=== PATIENT | male | born 1965 | race Caucasian/White ===

== ENCOUNTER → 2020-07-22 11:09 | Outpatient (BNVA) | payer SELFPAY | PROVIDERS: PCP Internal Medicine; Visit Provider Internal Medicine | DX: Z02.79 Encounter for issue of other medical certificate (principal) ==

== ENCOUNTER 2022-06-02 07:57 | Outpatient (REF) | payer BC, SELFPAY ==
[2022-06-02 11:29] LABS: MANUAL DIFF FLAG NO
[2022-06-02 11:38] LABS: Basophils Absolute Auto 0.1 X10*3/uL (0.0-0.2); Basophils Percent Auto 0.8 % (0-2); Eosinophils Absolute Auto 0.1 X10*3/uL (0.0-0.4); Eosinophils Percent Auto 1.9 % (0-4); Hematocrit 43.8 % (42.0-52.0); Hemoglobin 15.1 g/dl (14.0-18.0); Imm Gran Abs Auto 0.02 X10*3/uL (0.00-0.03); Imm Gran Pct Auto 0.3 % (0.0-0.4); Lymphocytes Absolute Auto 1.6 X10*3/uL (1.2-4.9); Lymphocytes Percent Auto 25.4 % (20-40); Mean Corpuscular HGB Conc 34.5 g/dl (31.0-36.0); Mean Corpuscular Hemoglobin 30.1 pg (27.0-33.0); Mean Corpuscular Volume 87.4 fL (80.0-98.0); Mean Platelet Volume 9.9 fL (9.4-12.4); Monocytes Absolute Auto 0.6 X10*3/uL (0.1-1.2); Neutrophils Absolute Auto 3.8 x10*3/uL (2.0-8.3); Neutrophils Percent Auto 61.6 % (45-73); Platelet Count 228 X10*3/uL (160-400); Red Blood Count 5.01 X10*6/uL (4.60-5.80); White Blood Count 6.2 X10*3/uL (4.8-10.8)
[2022-06-02 12:17] LABS: Alanine Aminotransferase 31 U/L (0-40); Albumin Level 4.2 g/dL (3.5-5.0); Alkaline Phosphatase 74 U/L (39-117); Anion Gap 15 (12-20); Aspartate Amino Transferase 27 U/L (5-37); Bilirubin Total 0.9 mg/dL (0.0-1.0); Blood Urea Nitrogen 20 mg/dL (9-16); Calcium 8.8 mg/dL (8.4-10.2); Carbon Dioxide 24 mmol/L (22-29); Chloride 102 mmol/L (96-108); Cholesterol 176 mg/dL; Estimated Glomerular Filt Rate > 60; Glucose Fasting 110 mg/dL (60-99); HDL Cholesterol 55 mg/dL; LDL Cholesterol Calculated 96 mg/dl; Potassium 4.3 mmol/L (3.3-5.1); Sodium 137 mmol/L (135-145); Total Protein 6.9 g/dL (6.5-8.0); Triglycerides 126 mg/dL
[2022-06-02 12:21] LABS: PSA,Total (Free>4and<10) 0.66 ng/mL (0.00-4.00); Thyroid Stimulating Hormone 1.65 uIU/mL (0.32-4.0); Vitamin D 25-OH Total 31.3 ng/mL (>30)
[2022-06-02 16:44] LABS: Appearance Urine Cloudy; Color Urine Yellow; Glucose Urine UA Negative (Negative); Leukocyte Esterase Urine Negative (Negative); Nitrite Urine Negative (Negative); Urine Blood Negative (Negative); Urine Ketones Negative (Negative); Urine Protein Trace mg/dL (Neg-Trace)
[2022-06-02 16:50] LABS: Bacteria Urine None Seen (None Seen); Hyaline Casts Urine 0-2 /LPF (0-2); RBC Urine 0-2 /HPF (0-2); Squamous Epithelial Cell Urine 0-2 /HPF (0-2); WBC Urine 0-5 /HPF (0-5)
[2022-06-02 17:09] LABS: Specific Gravity - Urine >= 1.030 (1.005-1.025)
== END 2022-06-02 07:58 | disposition home or self-care (01) ==
LOC: HO.HMGCLDS 07:57
PROVIDERS: PCP Internal Medicine; Visit Provider Internal Medicine
DX: Z00.00 Encounter for general adult medical examination without abnormal findings (principal); Z12.5 Encounter for screening for malignant neoplasm of prostate; F10.10 Alcohol abuse, uncomplicated
CPT/HCPCS: 36415; 80053; 80061; 81001; 82306; 84153; 84443; 85025

== ENCOUNTER → 2022-07-13 08:12 | Outpatient (BNVA) | payer SELFPAY | PROVIDERS: PCP Internal Medicine; Visit Provider Internal Medicine | DX: Z02.79 Encounter for issue of other medical certificate (principal) ==

== ENCOUNTER 2023-04-06 08:29 | Outpatient (REF) | payer BC, SELFPAY ==
--- NOTE | ~2023-04-06 | XR_ITS ---
EXAMINATION: XR SACROILIAC JOINTS CLINICAL INFORMATION: Low back pain COMPARISON: None available at the time of this dictation. TECHNIQUE: Three views, frontal and both obliques, were obtained. FINDINGS: Mild sclerotic changes around the sacroiliac joints are Third right more than left suggesting mild sacroiliitis. No evidence of ankylosing. The sacrum, iliac bone, visualized portion of the lumbar spine are intact. Surrounding soft tissues unremarkable. XR/XR sacroiliac joint min 3V IMPRESSION: * Mild sclerotic changes around the sacroiliac joints right more than left suggesting mild sacroiliitis. May consider correlation with MRI for better visualization if clinically indicated. * No evidence of ankylosing spondylitis.
--- NOTE | ~2023-04-06 | XR_ITS ---
EXAMINATION: XR LUMBAR SPINE CLINICAL INFORMATION: BILAT LOW BACK PAIN COMPARISON: None TECHNIQUE: Frontal lateral and coned-down L5-S1 frontal lateral, 3 views FINDINGS: Five [id number] lumbar vertebrae were identified maintaining normal height and alignments. Narrowing of intervertebral disc spaces suggest underlying degenerative disc disease. Paravertebral soft tissues are unremarkable. There are vascular calcifications of the aorta. There are radiolucencies, most likely superimposed bowel gas.. No radiographic evidence of osteolytic or osteoblastic lesions. XR/XR lumbar spine 2-3V IMPRESSION: Degenerative disc disease, no fracture.
== END 2023-04-06 08:30 | disposition home or self-care (01) ==
LOC: HO.HMGCX 08:29
PROVIDERS: PCP Internal Medicine; Visit Provider Internal Medicine
DX: M54.50 Low back pain, unspecified (principal)
CPT/HCPCS: 72100; 72202

== ENCOUNTER 2023-09-11 08:29 | Outpatient (REF) | payer BC, SELFPAY ==
[2023-09-11 10:29] LABS: MANUAL DIFF FLAG NO
[2023-09-11 10:48] LABS: Basophils Absolute Auto 0.1 X10*3/uL (0.0-0.2); Basophils Percent Auto 1.3 % (0-2); Eosinophils Absolute Auto 0.1 X10*3/uL (0.0-0.4); Eosinophils Percent Auto 1.5 % (0-4); Hematocrit 40.6 % (42.0-52.0); Hemoglobin 14.2 g/dl (14.0-18.0); Imm Gran Abs Auto 0.02 X10*3/uL (0.00-0.03); Imm Gran Pct Auto 0.4 % (0.0-0.4); Lymphocytes Absolute Auto 1.3 X10*3/uL (1.2-4.9); Lymphocytes Percent Auto 24.3 % (20-40); Mean Corpuscular Volume 88.6 fL (80.0-98.0); Mean Platelet Volume 10.4 fL (9.4-12.4); Monocytes Absolute Auto 0.5 X10*3/uL (0.1-1.2); Monocytes Percent Auto 8.2 % (2-11); Neutrophils Absolute Auto 3.5 x10*3/uL (2.0-8.3); Neutrophils Percent Auto 64.3 % (45-73); Platelet Count 221 X10*3/uL (160-400); Red Blood Count 4.58 X10*6/uL (4.60-5.80); Red Cell Distribution Width 13.1 % (11.0-16.0); White Blood Count 5.5 X10*3/uL (4.8-10.8)
[2023-09-11 12:17] LABS: Alanine Aminotransferase 30 U/L (0-40); Albumin Level 3.9 g/dL (3.5-5.0); Alkaline Phosphatase 71 U/L (39-117); Anion Gap 12 (12-20); Aspartate Amino Transferase 32 U/L (5-37); Bilirubin Total 0.5 mg/dL (0.0-1.0); Blood Urea Nitrogen 19 mg/dL (9-16); Carbon Dioxide 23 mmol/L (22-29); Chloride 104 mmol/L (96-108); Cholesterol 147 mg/dL (<200); Estimated Glomerular Filt Rate > 60; Glucose Fasting 111 mg/dL (60-99); HDL Cholesterol 51 mg/dL (>40); LDL Cholesterol Calculated 73 mg/dL (<100); Potassium 3.9 mmol/L (3.3-5.1); Sodium 135 mmol/L (135-145); Total Protein 6.7 g/dL (6.5-8.0); Triglycerides 115 mg/dL (<150)
== END 2023-09-11 08:30 | disposition home or self-care (01) ==
LOC: HO.HMGCLDS 08:29
PROVIDERS: PCP Internal Medicine; Visit Provider Internal Medicine
DX: Z00.00 Encounter for general adult medical examination without abnormal findings (principal); Z12.5 Encounter for screening for malignant neoplasm of prostate; M54.50 Low back pain, unspecified; F17.200 Nicotine dependence, unspecified, uncomplicated
CPT/HCPCS: 36415; 80053; 80061; 84153; 85025

== ENCOUNTER 2023-10-04 14:17 | Outpatient (AMB) | payer BC, SELFPAY ==
--- NOTE | 2023-10-04 14:18 | MHC.OFFVIS ---
Intake Vital Signs 10/04/23 14:26 Height 5 ft 5.5 in Weight 152 lb BMI 24.9 BP 153/84 H Blood Pressure Location Rt brachial Position Sitting Pulse 78 Intake Visit Reasons: Hernia of abdominal wall Intake Note: Patient referred by PCP Dr. Gallardo for evaluation and treatment of an abdominal wall hernia. Patient thinks hernia has been present since . Pt c/o: became bothersome recently. 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 Allergy (Unknown, Uncoded 10/04/23 14:24) n/a Medication List - Last Reconciled 10/04/23 by Aidan Hess MD No Known Home Meds HPI HPI Comments History of Present Illness Details 58-year-old male patient presenting with a prolonged history of a lump located in the right groin. He feels the lump began many years ago perhaps in the 80s after lifting over his head. Since this time, the lump as started to cause some discomfort. He was evaluated by Dr. Gallardo and a right inguinal hernia confirmed. He denies any nausea, vomiting, fever or chills. He he is status post appendectomy but denies any previous hernia surgery. The hernia seems to increase in size with lifting and straining but is easily reducible with light pressure. [facility] Medical History Depressed skull fracture Surgical History History of appendectomy History of arthroplasty of right knee Family History Sister Pelvic cancer Social History Alcohol intake: current Alcohol intake frequency: a few times a week Alcohol type: beer Cigarettes Per Day: 2 Review of Systems Const All systems reviewed & are unremarkable except as noted in HPI and below Physical Exam Vital Signs: Last Vital Signs Pulse 78 10/04/23 14:26 BP 153/84 H 10/04/23 14:26 BMI result Body Mass Index 24.9 Const General: cooperative and no acute distress Nutritional Appearance: well nourished Orientation/consciousness: patient oriented x3 Limitations: no limitations HEENT Head: Yes normocephalic and Yes atraumatic Ears: hearing grossly normal bilaterally Resp Effort & Inspection: normal respiratory effort, no audible wheezes, no cough and no respiratory distress Cardio Jugular venous distension: no JVD GI Other: Soft, nondistended, nontender, easily reducible lump in the right groin slightly lateral to the internal ring. Lump increases in size with Valsalva maneuvers and is easily reduced in the standing position. No left inguinal hernia or umbilical hernias are identified. Inspection: Yes normal to inspection Abdomen image: 1. 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 The lump is now become symptomatic and is requesting repair. On examination there is indeed a palpable lump in the right groin suggestive of a right inguinal hernia. The hernia is easily reducible with light pressure. I recommended a repair of the right inguinal hernia with mesh and after discussion of the procedure, risks, and alternatives, consents to the surgery. Coding Level of Care Code New Pt Level 4 (22686) Diagnoses Reducible right inguinal hernia K40.90
[2023-10-04 14:26] VITALS: BP 153/84; PULSE 78; BMI 24.9
== END 2023-10-04 14:38 | disposition home or self-care (01) ==
PROVIDERS: PCP Internal Medicine; Referring Provider Internal Medicine; Visit Provider Surgery
DX: K40.90 Unilateral inguinal hernia, without obstruction or gangrene, not specified as recurrent (principal)
CPT/HCPCS: 99204

== ENCOUNTER → 2023-10-04 14:17 | Outpatient (BNVA) | payer BC, SELFPAY | PROVIDERS: PCP Internal Medicine; Referring Provider Internal Medicine; Visit Provider Surgery ==

== ENCOUNTER 2023-10-15 08:50 | Day surgery (SDC) | payer BC, SELFPAY ==
--- NOTE | 2023-10-12 09:10 | HO.ANESPROP2 ---
Documented by User: Elise Landry NP 10/12/23 09:10 HPI - Anesthesia Eval Consult details Narrative: 58yo M for Right Hernia Repair Inguinal w/mesh PMFSH Active Problems Active Problems: All Active Problems (Updated 10/04/23 @ 14:39 by Aidan Hess MD) Reducible right inguinal hernia (Acute) Past Medical History Medical History Depressed skull fracture Family History Family History Sister Pelvic cancer Surgical History Surgical History History of appendectomy History of arthroplasty of right knee Social History Social History Alcohol intake: current Alcohol intake frequency: a few times a week Alcohol type: beer Patient Tobacco Use Status: Current everyday Tobacco user Tobacco use type: Cigarette Cigarettes Per Day: 2 Smoked in Last 30 Days: Yes Patient Interested in Nicotine Replacement: No Are you DNR?: No Advance Directives: No Advance Directives Information Provided: Yes Nutrition Risks: No Nutritional Risk Meds Allergies Allergy/AdvReac Type Severity Reaction Status Date / Time No Known Allergies Allergy Verified 10/15/23 09:18 Home Medications Medication Instructions Recorded Confirmed Last Taken Type No Known Home Meds 10/04/23 10/15/23 Unknown History Exam Pertinent Lab Results Pertinent Lab Results: Laboratory Tests 09/11/23 09/11/23 08:04 08:36 WBC 5.5 Hgb 14.2 Hct 40.6 L Plt Count 221 Sodium 135 Potassium 3.9 Chloride 104 Carbon Dioxide 23 BUN 19 H Creatinine 0.91 Assessment and Plan Assessment Anesthesia Assessment: Chart Reviewed Documented by User: Ava Deras MD 10/15/23 10:13 PMFSH Active Problems Active Problems: All Active Problems (Updated 10/15/23 @ 10:00 by Ava Deras MD) Reducible right inguinal hernia (Acute) Smoker- last cigarette this morning Past Medical History Medical History Depressed skull fracture Family History Family History Sister Pelvic cancer Family history of problems with anesthesia: No Surgical History Surgical History History of appendectomy History of arthroplasty of right knee History of Problems with Anesthesia: No Social History Social History Alcohol intake: current Alcohol intake frequency: a few times a week Alcohol type: beer Patient Tobacco Use Status: Current everyday Tobacco user Tobacco use type: Cigarette Cigarettes Per Day: 2 Smoked in Last 30 Days: Yes Patient Interested in Nicotine Replacement: No Are you DNR?: No Advance Directives: No Advance Directives Information Provided: Yes Nutrition Risks: No Nutritional Risk Meds Allergies Allergy/AdvReac Type Severity Reaction Status Date / Time No Known Allergies Allergy Verified 10/15/23 09:18 Home Medications Medication Instructions Recorded Confirmed Last Taken Type No Known Home Meds 10/04/23 10/15/23 Unknown History Exam Height,Weight and Vital Signs: Height 5 ft 5.5 in Weight 70.125 kg Vital Signs Temp Pulse Resp BP Pulse Ox O2 Del Method 10/15/23 09:49 98.1 F 62 18 126/78 98 Room Air Airway Mallampati Class: II TM Dist: >3cm Neck ROM: Full Loose/Missing/Broken Teeth: Yes (Broken top front, some missing. Denies loose teeth) Heart: RRR Lungs: CTAB Assessment and Plan Assessment Anesthesia Assessment: Anesthesia Plan Discussed Final Anesthetic Review Family History of Problems with Anesthesia: No History of Problems with Anesthesia: No NPO: Yes ASA Class: II Final Preanesthetic Review: No Changes in Pt Med Stat, Meds/Allgs Chart Reviewed, Consent Obtained/Reviewed and Anes Risks/Benef Reviewed Patient Risk: Low Procedure Risk: Low Assessment/Block/Sedation in SS: Assess/Block/Sedation-SS Anesthetic Plan Anesthetic Plan: GA Disposition: Standard PACU
[2023-10-15 09:17] VITALS: BMI 25.3
[2023-10-15 09:49] VITALS: BP 126/78; PULSE 62; RESP 18; TEMP 36.7; O2SAT 98
--- NOTE | 2023-10-15 09:50 | MHC.SHP ---
Pre-Procedural Eval Section A Date of Service: 10/15/23 The patient is an INPATIENT: No Changes since office visit: Yes Patient answered all questions; No Cold of Flu in the past 2 weeks, No New Medical Problems and No Changes in Medication The History & Physical has been completed within 30 days and I have reviewed it.: Yes Section B Chief Complaint: Unilateral inguinal hernia, without obstruction or Allergies: Allergies Allergy/AdvReac Type Severity Reaction Status Date / Time No Known Allergies Allergy Verified 10/15/23 09:18 Plan Diagnosis/Plan: Unchanged I have reviewed the history and physical and performed a pertinent physical examination on my patient. No changes have occurred unless specified. Time Spent With Patient Time: Total time managing care of this patient today ____ minutes.
--- NOTE | 2023-10-15 11:07 | W.PM.OPN ---
Operative Note Operative Note Date of Service: 10/15/23 Narrative: Preoperative diagnosis: Right inguinal hernia, reducible Postoperative diagnosis: Same Procedure: Same Surgeon: Aidan Hess MD Tax Commissioner: Nighat Pritchard PA-C Anesthesia: General LMA Indications for procedure: 58-year-old male patient presenting with a palpable lump located in the right groin extending lateral of the internal ring consistent with an inguinal hernia, reducible Operative findings: Indirect right inguinal hernia, reducible Specimen: None Estimated blood loss: 2 mL Complications: None Procedure details: Patient was brought to the OR and placed in a supine position. After administering general anesthesia patient's abdomen was prepped with ChloraPrep and draped in a sterile fashion. A surgical time-out was called the consent confirmed. Patient received preoperative antibiotics and Venodyne boots were in place. Local anesthesia was infiltrated over the right inguinal ligament. Incision was then made with a scalpel carried out through subcutaneous tissue, past Rob's fashion up to the external oblique aponeurosis. Additional local was infiltrated below the aponeurosis. This was then incised with the scalpel widened with the Metzenbaum scissors. Spermatic cord was then dissected free from the surrounding inguinal canal and retracted with a Navya drain. No direct hernia was identified. Fibers of the cremasteric muscle were divided along the fibers and the cord explored. An indirect sac was identified dissected down to the internal ring. This was then reduced into the abdominal cavity. Attention was then directed to the floor of the inguinal canal. The internal oblique and transversalis aponeurosis was then incised history peritoneal space entered. This was then widened with an open Ray-Camille sponge. A large extended PHS mesh was then obtained. The circular underlay was then deployed within the preperitoneal space. The overlay was then secured to the pubic tubercle, conjoined tendon, and shelving edge of the inguinal ligament using 0 Polysorb suture. The mesh was slit at the internal ring and wrapped around the spermatic cord. This was then secured to the shelving edge of the inguinal ligament. Internal ring was high enough to allow the passage of the index finger tip. The remaining mesh was then placed laterally below the external oblique aponeurosis. Wounds were then irrigated with saline and suctioned dry. External oblique aponeurosis was then closed using a running 2-0 Polysorb suture. 5 mL of Zenrelef was then infiltrated below the external oblique aponeurosis. Rob's fascia and dermis were then reapproximated using interrupted 3-0 Polysorb sutures. Skin was then closed using a running subcuticular 4-0 Polysorb suture. Steri-Strips, 2 x 2 gauze and Tegaderm were then applied. The patient tolerated the procedure well. Sponge, instrument, and needle counts reported as correct. The patient was transferred to PACU in stable condition.
[2023-10-15 11:18] VITALS: BP 122/79; PULSE 67; RESP 10; TEMP 36.1; O2SAT 95
[2023-10-15 11:20] VITALS: BP 113/79; PULSE 64; RESP 12; O2SAT 98
[2023-10-15 11:25] VITALS: BP 112/77; PULSE 62; RESP 14; O2SAT 95
[2023-10-15 11:30] VITALS: BP 125/76; PULSE 62; RESP 16; O2SAT 98
[2023-10-15 11:45] VITALS: BP 141/85; PULSE 62; RESP 14; TEMP 36.6; O2SAT 98
== END 2023-10-15 12:53 | disposition home or self-care (01) ==
PROVIDERS: PCP Internal Medicine; Visit Provider Surgery
PROC: (CPT 49505; principal; 2023-10-15 10:20)
DX: K40.90 Unilateral inguinal hernia, without obstruction or gangrene, not specified as recurrent (principal); Z98.890 Other specified postprocedural states; F17.210 Nicotine dependence, cigarettes, uncomplicated
CPT/HCPCS: 49505; C1781; C9088; J0665; J0690; J1100; J1885; J2250; J2405; J2704; J3010

== ENCOUNTER → 2023-10-15 08:50 | Outpatient (BNV) | payer BC, SELFPAY | PROVIDERS: PCP Internal Medicine; Visit Provider Surgery | DX: K40.90 Unilateral inguinal hernia, without obstruction or gangrene, not specified as recurrent (principal) | CPT/HCPCS: 49505 ==

== ENCOUNTER 2023-10-23 10:20 | Outpatient (AMB) | payer BC, SELFPAY ==
--- NOTE | 2023-10-23 10:29 | MHC.OFFVIS ---
Intake Vital Signs 10/23/23 10:30 Height 5 ft 5.5 in Weight 152 lb 2 oz BMI 24.9 BP 155/83 H Blood Pressure Location Lt brachial Position Sitting Pulse 95 Intake Visit Reasons: S/p RIH repair with mesh Intake Note: Patient is seen in office for post op assessment post right inguinal hernia repair. 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 He tolerated the procedure well but does have some soreness in the incision. He feels Tylenol is helping with the pain. He denies any nausea or vomiting but did have some constipation. ON LICENSE OF [facility] Medical History Depressed skull fracture Surgical History H/O right inguinal hernia repair (10/15/23) History of appendectomy History of arthroplasty of right knee Family History Sister Pelvic cancer Social History Alcohol intake: current Alcohol intake frequency: a few times a week Alcohol type: beer Patient Tobacco Use Status: Current everyday Tobacco user Tobacco use type: Cigarette Cigarettes Per Day: 2 Physical Exam Vital Signs: Last Vital Signs Pulse 95 10/23/23 10:30 BP 155/83 H 10/23/23 10:30 BMI result Body Mass Index 24.9 Const General: no acute distress Nutritional Appearance: well nourished Orientation/consciousness: patient oriented x3 Limitations: no limitations Resp Effort & Inspection: normal respiratory effort, no audible wheezes, no cough and no respiratory distress GI Other: Incision in the left groin is clean, dry, and intact. A normal healing ridge is identified. No hernia noted with Valsalva maneuvers. Neuro General: patient oriented x3 Extrem General: Yes no clubbing, cyanosis or edema Assessment & Plan Assessment & Plan (1) Reducible right inguinal hernia: Code(s): K40.90 - Unilateral inguinal hernia, without obstruction or gangrene, not specified as recurrent Plan 50-year-old male patient returning for postop visit following right inguinal hernia repair with mesh 1 week ago. His wounds are healing nicely with no evidence of recurrent hernia or infection. He should follow up in 1 month for a final postoperative visit. He will continue to avoid lifting greater than 10 lb. Coding Level of Care Code Global (92175) Diagnoses Reducible right inguinal hernia K40.90
[2023-10-23 10:30] VITALS: BP 155/83; PULSE 95; BMI 24.9
== END 2023-10-23 10:37 | disposition home or self-care (01) ==
PROVIDERS: PCP Internal Medicine; Visit Provider Surgery
DX: K40.90 Unilateral inguinal hernia, without obstruction or gangrene, not specified as recurrent (principal)
CPT/HCPCS: 99024

== ENCOUNTER → 2023-10-23 10:20 | Outpatient (BNVA) | payer BC, SELFPAY | PROVIDERS: PCP Internal Medicine; Visit Provider Surgery ==

== ENCOUNTER 2023-11-23 09:38 | Outpatient (AMB) | payer BC, SELFPAY ==
--- NOTE | 2023-11-23 09:40 | A.OFFVIS_ITS ---
Intake Vital Signs 11/23/23 09:46 Height 5 ft 5.5 in Weight 158 lb 6 oz BMI 26.0 BP 135/80 Blood Pressure Location Lt brachial Position Sitting Pulse 80 Intake Visit Reasons: 1 mth follow up RIH repair with mesh Intake Note: Patient is seen in office for one month follow up visit, post right inguinal hernia repair. 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 He feels well and denies any pain or swelling in the right groin. Did note a blood clot from his scrotum several days ago but denies any ongoing lesion or bleeding. [facility] Medical History Depressed skull fracture Surgical History H/O right inguinal hernia repair (10/15/23) History of appendectomy History of arthroplasty of right knee Family History Sister Pelvic cancer Social History Alcohol intake: current Alcohol intake frequency: a few times a week Alcohol type: beer Patient Tobacco Use Status: Current everyday Tobacco user Tobacco use type: Cigarette Cigarettes Per Day: 2 Physical Exam Vital Signs: Last Vital Signs Pulse 80 11/23/23 09:46 BP 135/80 11/23/23 09:46 BMI result Body Mass Index 26.0 Const General: no acute distress Nutritional Appearance: well nourished Orientation/consciousness: patient oriented x3 Resp Effort & Inspection: normal respiratory effort GI Other: Well-healed right inguinal incision without hematoma or seroma. No hernia noted with Valsalva maneuvers. Scrotum with no evidence of skin lesion or ongoing bleeding. Neuro General: patient oriented x3 Extrem General: Yes normal to inspection Assessment & Plan Assessment & Plan (1) Reducible right inguinal hernia: Code(s): K40.90 - Unilateral inguinal hernia, without obstruction or gangrene, not specified as recurrent Plan Patient returns 1 month following repair of a right inguinal hernia with mesh. He tolerated the procedure well and his wounds are healing nicely. He should follow up as needed. He may resume normal activity without restrictions. Coding Level of Care Code Global (60133) Diagnoses Reducible right inguinal hernia K40.90
[2023-11-23 09:46] VITALS: BP 135/80; PULSE 80; BMI 26.0
== END 2023-11-23 09:51 | disposition home or self-care (01) ==
PROVIDERS: PCP Internal Medicine; Visit Provider Surgery
DX: K40.90 Unilateral inguinal hernia, without obstruction or gangrene, not specified as recurrent (principal)
CPT/HCPCS: 99024

== ENCOUNTER → 2023-11-23 09:38 | Outpatient (BNVA) | payer BC, SELFPAY | PROVIDERS: PCP Internal Medicine; Visit Provider Surgery | DX: K40.90 Unilateral inguinal hernia, without obstruction or gangrene, not specified as recurrent (principal) ==

== ENCOUNTER → 2024-06-11 08:32 | Outpatient (BNVA) | payer SELFPAY | PROVIDERS: PCP Internal Medicine; Visit Provider Internal Medicine | DX: Z02.79 Encounter for issue of other medical certificate (principal) ==

== ENCOUNTER 2025-02-13 08:53 | Outpatient (AMB) | payer BC, SELFPAY ==
--- NOTE | 2025-02-13 09:05 | A.OFFPC_ITS ---
Vital Signs 02/13/25 09:11 Height 5 ft 5.5 in Weight 155 lb BMI 25.4 BP 124/74 Blood Pressure Location Rt brachial Position Sitting Respiration 14 Pulse 76 Pulse Source Pulse Oximeter Temp 97.6 F Temp Source Temporal Artery Scan Pulse Oximetry (%) 98 Oxygen Delivery Method Room Air Intake Visit Reasons: physical Group Rooms Coordinator Required: No Accompanied by: Self / Same As Patient Allergies No Known Allergies Allergy (Verified 02/13/25 09:28) Medication List - Last Reconciled 02/13/25 by Erica Hernandez PA-C No Known Home Meds Tobacco use date assessed: 02/13/25 Dental Screening Dental Screen Date: 02/13/25 Did you have a dental visit in the last 12 months?: No Did you have a dental problem in the last 6 months where you did not have access to dental care?: No HPI physical HPI Details The patient is a 59-year-old male presenting for an annual physical examination. The patient has a history of an episode of elevated fasting glucose reported in the past. Although the patient was previously diagnosed with elevated fasting glucose, they are not currently on any diabetes medications. In the past, he had issues with insomnia associated with episodes of body jerking and elevated heart rate, resembling an adrenaline response. This occurred in the and has not been recent. The patient has noted a family history of cancer, with his sister diagnosed with pelvic cancer, and an unspecified type of cancer in his maternal grandmother, whom he did not personally know. There is no active malignancy in the patient's personal history reported in this visit. The patient does not take prescribed medications and reports occasional use of ibuprofen. He mentioned regular alcohol consumption as a measure to help with sleep, despite having been advised against quitting alcohol suddenly. For maintenance, he was recommended to take [id number] vitamin B12 and folate supplements due to the potential effects of alcohol on brain health. During past medical evaluation, the patient underwent colonoscopy at the age of 52, reported as normal at the time, with the next screening scheduled for 2026. Also, during discussions with his physician, it was noted that he does not currently present with high blood pressure but previously experienced isolated elevated values related to anxiety. Social History - Employed in [employer] and [employer] work - Lives alone - Regular alcohol consumption - Diet reportedly poor - Engages in physical labor - Does not have a current exercise routshan schaefer discussed - Advised to take vitamin B12 and folate [id number] [facility] Medical History (Updated 02/13/25 @ 09:56 by Erica Hernandez PA-C) Overweight (BMI 25.0-29.9) Chronic venous insufficiency Annual physical exam Establishing care with new doctor, encounter for Alcohol use disorder Depressed skull fracture Surgical History History of colonoscopy (~04/16/17) H/O right inguinal hernia repair (10/15/23) History of appendectomy History of arthroplasty of right knee Family History Sister Pelvic cancer Social History Housing: House Alcohol intake: current Alcohol intake frequency: 0-2 drinks per day Alcohol type: beer Patient Tobacco Use Status: Current everyday Tobacco user Tobacco use type: Cigarette Cigarettes Per Day: 2 service: No Current occupational status: employed Cognitive needs: No Hearing needs: No Vision needs: Yes (reading glasses) Questionnaire PHQ-9 Over the last 2 weeks, how often have you been bothered by any of the following problems? 1. Little interest or pleasure in doing things: not at all 2. Feeling down, depressed, or hopeless: not at all 3. Trouble falling or staying asleep, or sleeping too much: not at all 4. Feeling tired or having little energy: not at all 5. Poor appetite or overeating: not at all 6. Feeling bad about yourself - or that you are a failure or have let yourself or your family down: not at all 7. Trouble concentrating on things, such as reading the newspaper or watching television: not at all 8. Moving or speaking so slowly that other people could have noticed. Or the opposite - being so fidgety or restless that you have been moving around a lot more than usual: not at all 9. Thoughts that you would be better off or of hurting yourself in some way: not at all Total score: 0 Depression Screening Interpretation: Negative Depression Screening Done: Yes 24394 - PHQ-9 Billing: Yes Source: Developed by Drs. Bryan Camilo, Davis Torres and colleagues, with an educational ryder from [employer]. Thrive Questionnaire Date Thrive assessed: 02/13/25 I am a: Patient What is your living situation today?: I have a steady place to live Within the past 12 months, did the food you bought not last and you didn't have the money to get more?: Never true Within the past 12 months, did you worry whether your food would run out before you got money to buy more?: Never true Do you have trouble paying for medicines?: No Do you have trouble getting transportation to medical appointments?: No Do you have trouble paying your heating and electricity bill?: No Do you have trouble taking care of your child, family member or friend?: No Do you have trouble with day-to-day activities such as bathing, preparing meals, shopping, managing finances, etc.?: No Are you currently unemployed and looking for a job?: No Are you interested in more education?: No Please select the resources that you would like help with: None THRIVE Score: 0 AUDIT C Alcohol Use Questionnaire (AUDIT-C) 1. How often do you have a drink containing alcohol?: 4 or more times a week 2. How many drinks containing alcohol do you have on a typical day when you are drinking?: 1 or 2 3. How often do you have six or more drinks on one occasion?: Never Total Score: 4 Score Reviewed/Action Taken: Yes (Patient declined any help to quit drinking at this time) CARO-7 AMB Questionnaire CARO-7 Date CARO - 7 assessed: 02/13/25 Feeling nervous, anxious, or on edge: 0 = Not at all Not being able to stop or control worryin = Not at all Worrying too much about different things: 0 = Not at all Trouble relaxin = Not at all Being so restless that it is hard to sit still: 0 = Not at all Becoming easily annoyed or irritable: 0 = Not at all Feeling afraid as if something awful might happen: 0 = Not at all Total CARO-7 score (0-4 normal; 5-9 mild; 10-14 moderate; 15-21 severe): 0 Source: Developed by Drs. Bryan Camilo, Davis Torres and colleagues, with an educational ryder from [employer]. CARO-7 Assessment Billing CARO-7 Assessment Tool: CARO-7 Assessment 79090 Review of Systems Const Details: - Cardiovascular: Reports episodes of palpitations related to past adrenal hyperactivity. Denies chest pain. - Gastrointestinal: Denies bloody stools or significant weight change. Reports less regular bowel movements. - Musculoskeletal: Denies leg swelling but reports dizziness and instances of head trauma affecting balance. - Neurological: Reports past episodes of adrenaline hyperactivity causing insomnia, denies headaches but reports auditory disturbances post head trauma. - Dermatological: Denies recent rashes but reports long healing of a chronic wound. - General: Reports feeling fatigued and ancient trauma-related dizziness. - Alcohol Use: Reports regular alcohol consumption to aid with sleep. Physical exam (Primary Care) Vital Signs: Last Vital Signs Temp 97.6 F 02/13/25 09:11 Pulse 76 02/13/25 09:11 Resp 14 02/13/25 09:11 BP 150/84 H 02/13/25 09:11 Pulse Ox 98 02/13/25 09:11 Oxygen Delivery Method Room Air 02/13/25 09:11 Care Plan Goal for BP management: <130/90 BMI result Body Mass Index 25.4 BMI Assessment/Plan discussion: High BMI High, discussed plan: lifestyle, weight reduction, dietary, physical activity and alcohol moderation Tobacco/Smoking Status: Tobacco use Status Tobacco use date assessed 02/13/25 02/13/25 09:08 Patient Tobacco Use Status Current everyday Tobacco 02/13/25 09:16 Tobacco use type Cigarette 02/13/25 09:16 PHQ-9: PHQ-9 Score PHQ-9: Total score 0 02/13/25 09:17 Depression Screening Interpretation: Negative Thrive Assessment: Date of Thrive Assessment Date Thrive assessed 02/13/25 02/13/25 09:08 Const Other: Appearance: Alert. Oriented X3. No acute distress. Head: Normal external exam. Normocephalic. Atraumatic. Eyes: Pupils are equal, round, and reactive to light. Extraocular movements intact. Conjunctiva and sclera normal. Eyelids normal. Ears: Right ear has some wax, left ear normal. No blockage noted. Throat: Pharynx normal. Uvula midline. Moist mucous membranes. Neck: Normal inspection. Neck supple. Full range of motion. No adenopathy. Thyroid Normal. No meningeal signs. No neck mass noted. Cardiovascular: Normal heart rate and rhythm. Heart sound normal. No murmurs noted. Pulses normal throughout. Respiratory: No respiratory distress. Painless inspiration. Breath sounds normal. No wheezes/rales/rhonchi noted. Chest nontender. No accessory muscle usage noted or decreased air movement noted. Abdomen: Soft and nontender. Bowel sounds normal in all 4 quadrants. No distention noted. No organomegaly noted. No visible injury noted. Back: No costovertebral angle tenderness. Full range of motion noted. Skin: Skin warm and dry. Normal skin color. Normal skin turgor. No rashes/lesions/lacerations noted, except for a recent cut on the leg taking long to heal, possibly due to chronic venous insufficiency. Extremities: No lower extremity edema. Extremities exhibit normal range of motion. Extremities nontender. Neuro: Oriented X 3. No motor deficit. No sensory deficit. Reflexes normal. Reports occasional dizziness and sound echoing in the head, possibly related to past head trauma. Results Reviewed Results Reviewed: - Labs: Fasting blood glucose previously noted at 111 mg/dL. - Colonoscopy: Last performed in 2017, reported normal. - PSA, Thyroid, and Vitamin D tests were noted as normal in previous assessments. Coding Level of Care Code Est Pt Level 4 (03955) New Pt Prev Care 40-64y(34970) Diagnoses Establishing care with new doctor, encounter for Annual physical exam Z Alcohol use disorder F1 Chronic venous insufficiency I87.2 Overweight (BMI 25.0-29.9) E66.3 Additional Codes PHQ-9 - 70680 - PHQ-9 Billing: Yes ([id number]) CARO-7 Assessment Billing - CARO-7 Assessment Tool: CARO-7 Assessment 09455 ([id number]) Assessment & Plan Assessment & Plan (1) Establishing care with new doctor, encounter for: Code(s): Z76.89 - Persons encountering health services in other specified circumstances Category: Medical (2) Annual physical exam: Code(s): Z00. - Encounter for general adult medical examination without abnormal findings Category: Medical (3) Alcohol use disorder: Code(s): F10.90 - Alcohol use, unspecified, uncomplicated Category: Medical Plan: Advised against sudden cessation of alcohol. Recommended B12 and folate supplementation as neuroprotective measures. Condition is chronic and stable continue to monitor. (4) Chronic venous insufficiency: Code(s): I87.2 - Venous insufficiency (chronic) (peripheral) Category: Medical Plan: Advised on leg wound care and possible venous insufficiency. No immediate intervention required unless symptoms worsen. Condition is chronic and stable will continue to monitor. (5) Overweight (BMI 25.0-29.9): Code(s): E66.3 - Overweight Category: Medical Plan: Patient is a improve his diet and exercise regimen. Condition is chronic and stable will continue to monitor. Plan Plan Patient was informed and verbally consented to the use of an ambient scribe for clinic note documentation during this visit. 1. Alcohol Use Disorder Advised against sudden cessation of alcohol. Recommended B12 and folate s upplementation as neuroprotective measures. 2. Chronic Venous Insufficiency Advised on leg wound care and possible venous insufficiency. No immediate intervention required unless symptoms worsen. 3. Insomnia Advised monitoring for possible recurrence of insomnia symptoms. 4. Family History Of Cancer Continued routine cancer screenings as per guidelines, informed by family history. During the visit, I discussed with the patient the management of elevated blood pressure, although currently controlled at this visit with no intervention needed. We reviewed insomnia. Our conversation included a significant focus on alcohol consumption. The patient was advised to moderate intake and supplement with B12 and folate to reduce potential neurological risks associated with alcohol use. For the chronic slow-healing leg wound, I advised on routine care and the potential role of his venous circulation in the healing process. Discussion around hereditary cancer risk involved recognition of family history, and the patient was reminded of the importance of continued routine screenings. He was also informed of the necessity of regular follow-up to monitor any aber rations from planned health maintenance. Orders: Orders C Reactive Protein Today Z00.00 - Encounter for general adult medical examination without abnormal findings Comprehensive [place]. Panel Fast Today Z00.00 - Encounter for general adult medical examination without abnormal findings Complete Blood Count Auto Diff Today Z00.00 - Encounter for general adult medical examination without abnormal findings Vitamin B12 and Folate Today Z00.00 - Encounter for general adult medical examination without abnormal findings Vitamin D 25-OH Total Today Z00.00 - Encounter for general adult medical examination without abnormal findings TSH reflex Free T4 Today Z00.00 - Encounter for general adult medical examination without abnormal findings Hemoglobin A1c Today Z00.00 - Encounter for general adult medical examination without abnormal findings Lipid Panel Today Z00.00 - Encounter for general adult medical examination without abnormal findings Liver Panel Today Z00.00 - Encounter for general adult medical examination without abnormal findings PSA,Total (Free>4and<10) Today Z00.00 - Encounter for general adult medical examination without abnormal findings Magnesium Today Z00.00 - Encounter for general adult medical examination without abnormal findings Erythrocyte Sedimentation Rate Today Z00.00 - Encounter for general adult medical examination without abnormal findings Patient Instructions: - Continue monitoring blood pressure at regular intervals. - Reduce alcohol intake gradually; do not stop abruptly. - Take vitamin B12 and folate supplements to support brain health. - Follow wound care routine and elevate legs to help with healing. - Protect ear health by cleaning with peroxide and warm water weekly. - Schedule blood tests as advised within the next week to monitor various health markers. - Avoid being overly exposed to the sun to prevent dizziness. - Follow recommendations for diabetes screening as per blood test results. - Return for follow-up in six months or sooner if new symptoms arise.
[2025-02-13 09:11] VITALS: BP 124/74; PULSE 76; RESP 14; TEMP 36.4; O2SAT 98; BMI 25.4
== END 2025-02-13 09:40 | disposition home or self-care (01) ==
PROVIDERS: PCP Internal Medicine; Visit Provider Physician Assistant Medical
DX: Z00.00 Encounter for general adult medical examination without abnormal findings (principal); F10.90 Alcohol use, unspecified, uncomplicated; I87.2 Venous insufficiency (chronic) (peripheral); E66.3 Overweight

== ENCOUNTER → 2025-02-13 08:53 | Outpatient (BNVA) | payer SELFPAY | PROVIDERS: PCP Internal Medicine; Visit Provider Physician Assistant Medical | DX: Z76.89 Persons encountering health services in other specified circumstances (principal); Z00.00 Encounter for general adult medical examination without abnormal findings; F10.90 Alcohol use, unspecified, uncomplicated; I87.2 Venous insufficiency (chronic) (peripheral); E66.3 Overweight | CPT/HCPCS: 96127 ==

== ENCOUNTER 2025-02-14 06:50 | Outpatient (REF) | payer BC, SELFPAY ==
[2025-02-14 11:36] LABS: MANUAL DIFF FLAG NO
[2025-02-14 11:45] LABS: Basophils Absolute Auto 0.1 X10*3/uL (0.0-0.2); Basophils Percent Auto 1.2 % (0-2); Eosinophils Percent Auto 0.5 % (0-4); Hemoglobin 14.6 g/dl (14.0-18.0); Imm Gran Abs Auto 0.02 X10*3/uL (0.00-0.03); Imm Gran Pct Auto 0.3 % (0.0-0.4); Lymphocytes Absolute Auto 1.3 X10*3/uL (1.2-4.9); Lymphocytes Percent Auto 19.6 % (20-40); Mean Corpuscular HGB Conc 34.8 g/dl (31.0-36.0); Mean Corpuscular Hemoglobin 30.9 pg (27.0-33.0); Mean Platelet Volume 10.3 fL (9.4-12.4); Monocytes Absolute Auto 0.5 X10*3/uL (0.1-1.2); Monocytes Percent Auto 8.1 % (2-11); Neutrophils Absolute Auto 4.6 x10*3/uL (2.0-8.3); Neutrophils Percent Auto 70.3 % (45-73); Platelet Count 214 X10*3/uL (160-400); Red Blood Count 4.72 X10*6/uL (4.60-5.80); White Blood Count 6.6 X10*3/uL (4.8-10.8)
[2025-02-14 11:56] LABS: Estimated Average Glucose 117 mg/dL; Hemoglobin A1C 147.6693 umol/L; Hemoglobin A1c % 5.7 % (<6.0); Total Hemoglobin (HGBA1C) 3844.0938 umol/L
[2025-02-14 12:09] LABS: Alanine Aminotransferase 29 U/L (0-40); Albumin Level 4.1 g/dL (3.5-5.0); Alkaline Phosphatase 76 U/L (39-117); Anion Gap 14 (12-20); Aspartate Amino Transferase 32 U/L (5-37); Bilirubin Direct 0.2 mg/dL (0.0-0.5); Bilirubin Total 0.7 mg/dL (0.0-1.0); Blood Urea Nitrogen 16 mg/dL (9-16); C Reactive Protein 0.15 mg/dL (< or = 0.50); Calcium 8.9 mg/dL (8.4-10.2); Carbon Dioxide 22 mmol/L (22-29); Chloride 103 mmol/L (96-108); Cholesterol 162 mg/dL (<200); Estimated Glomerular Filt Rate > 60; Glucose Fasting 127 mg/dL (60-99); HDL Cholesterol 48 mg/dL (>40); LDL Cholesterol Calculated 76 mg/dL (<100); Magnesium 1.9 mg/dL (1.6-2.6); Potassium 3.9 mmol/L (3.3-5.1); Sodium 135 mmol/L (135-145); Total Protein 6.9 g/dL (6.5-8.0); Triglycerides 191 mg/dL (<150)
[2025-02-14 12:20] LABS: PSA,Total (Free>4and<10) 0.86 ng/mL (0.00-4.00)
[2025-02-14 12:21] LABS: Erythrocyte Sedimentation Rate 4 MM/HR (0-15)
[2025-02-14 12:27] LABS: TSH reflex Free T4 2.18 uIU/mL (0.32-4.0); Vitamin D 25-OH Total 44.9 ng/mL (>30)
[2025-02-14 12:30] LABS: Folate 12.9 ng/mL (> or = 4.0); Vitamin B12 484 pg/mL (200-900)
== END 2025-02-14 06:51 | disposition home or self-care (01) ==
LOC: HO.HMGCLDS 06:50
PROVIDERS: PCP Physician Assistant Medical; Visit Provider Physician Assistant Medical
DX: Z00.00 Encounter for general adult medical examination without abnormal findings (principal); Z12.5 Encounter for screening for malignant neoplasm of prostate; Z13.1 Encounter for screening for diabetes mellitus; Z13.6 Encounter for screening for cardiovascular disorders
CPT/HCPCS: 36415; 80053; 80061; 80076; 82248; 82306; 82607; 82746; 83036; 83735; 84153; 84443; 85025; 85652; 86140

== ENCOUNTER 2025-08-14 08:55 | Outpatient (AMB) | payer BC, SELFPAY ==
[2025-08-14 09:09] VITALS: BP 110/66; PULSE 68; RESP 14; TEMP 36.2; O2SAT 97; BMI 26.1
--- NOTE | 2025-08-14 09:09 | MHC.PC.OV ---
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 The patient reports new onset of constipation for the past week, a change from his usual regular bowel habits. He notes his stool is sometimes thin in caliber and sometimes normal, and he denies any black or bloody stools, unintentional weight loss, or abdominal pain. He has gained approximately five pounds. The patient attributes these symptoms to his diet, which consists of frequent fast food meals and insufficient vegetable intake. The patient also complains of right hip pain, which is primarily present while sitting, especially during his drive home from work, and improves with movement. He works as a manufacturing laborer, which involves constant motion, but does not experience pain during work activities. He reports generalized body stiffness and bilateral knee pain after work, noting a previous physician may have diagnosed him with osteoarthritis. He has a history of chronic low back pain localized to the tailbone area but denies any recent falls. Past lab work from six months ago was notable for slightly elevated glucose, consistent with prediabetes, and slightly elevated triglycerides. His CBC, electrolytes, kidney function, liver enzymes, total cholesterol, B12, thyroid, and folate were all normal. He had a normal colonoscopy in 2017 with a recommendation for a 10-year follow-up. He has a history of a hernia with no current issues. Social History - Employment: The patient works as a manufacturing laborer, which involves constant physical movement. - Nutrition: Reports a diet high in fast food, including [employer] for breakfast and [employer] later in the day, with low vegetable intake. - Substance Use: Reports significantly reduced alcohol intake, from a few beers daily to only on weekends. [facility] Medical History (Updated 08/14/25 @ 09:49 by Erica Hernandez PA-C) Preventative health care Sigmoid diverticulosis Colon polyp Internal hemorrhoids Bilateral knee pain Right hip pain Abnormal stools Overweight (BMI 25.0-29.9) Chronic venous insufficiency Annual physical exam Establishing care with new doctor, encounter for Alcohol use disorder Depressed skull fracture Surgical History (Updated 08/14/25 @ 09:48 by Erica Hernandez PA-C) History of colonoscopy (~04/16/17) H/O right inguinal hernia repair (10/15/23) History of appendectomy History of arthroplasty of right knee Family History Sister Pelvic cancer Social History Housing: House Alcohol intake: current Alcohol intake frequency: 0-2 drinks per day Alcohol type: beer Patient Tobacco Use Status: Current everyday Tobacco user Tobacco use type: Cigarette Cigarettes Per Day: 2 service: No Current occupational status: employed Cognitive needs: No Hearing needs: No Vision needs: Yes (reading glasses) Questionnaire PHQ-9 Over the last 2 weeks, how often have you been bothered by any of the following problems? 1. Little interest or pleasure in doing things: not at all 2. Feeling down, depressed, or hopeless: not at all 3. Trouble falling or staying asleep, or sleeping too much: not at all 4. Feeling tired or having little energy: not at all 5. Poor appetite or overeating: not at all 6. Feeling bad about yourself - or that you are a failure or have let yourself or your family down: not at all 7. Trouble concentrating on things, such as reading the newspaper or watching television: not at all 8. Moving or speaking so slowly that other people could have noticed. Or the opposite - being so fidgety or restless that you have been moving around a lot more than usual: not at all 9. Thoughts that you would be better off or of hurting yourself in some way: not at all Total score: 0 Depression Screening Interpretation: Negative Depression Screening Done: Yes 67730 - PHQ-9 Billing: Yes Source: Developed by Drs. Bryan Camilo, Carol Cm, Davis Ling and colleagues, with an educational ryder from [employer]. Thrive Questionnaire Date Thrive assessed: 02/13/25 I am a: Patient What is your living situation today?: I have a steady place to live Within the past 12 months, did the food you bought not last and you didn't have the money to get more?: Never true Within the past 12 months, did you worry whether your food would run out before you got money to buy more?: Never true Do you have trouble paying for medicines?: No Do you have trouble getting transportation to medical appointments?: No Do you have trouble paying your heating and electricity bill?: No Do you have trouble taking care of your child, family member or friend?: No Do you have trouble with day-to-day activities such as bathing, preparing meals, shopping, managing finances, etc.?: No Are you currently unemployed and looking for a job?: No Are you interested in more education?: No Please select the resources that you would like help with: None THRIVE Score: 0 AUDIT C Alcohol Use Questionnaire (AUDIT-C) 1. How often do you have a drink containing alcohol?: 4 or more times a week 2. How many drinks containing alcohol do you have on a typical day when you are drinking?: 1 or 2 3. How often do you have six or more drinks on one occasion?: Never Total Score: 4 Score Reviewed/Action Taken: Yes (Patient declined any help to quit drinking at this time) CARO-7 AMB Questionnaire CARO-7 Date CARO - 7 assessed: 02/13/25 Feeling nervous, anxious, or on edge: 0 = Not at all Not being able to stop or control worryin = Not at all Worrying too much about different things: 0 = Not at all Trouble relaxin = Not at all Being so restless that it is hard to sit still: 0 = Not at all Becoming easily annoyed or irritable: 0 = Not at all Feeling afraid as if something awful might happen: 0 = Not at all Total CARO-7 score (0-4 normal; 5-9 mild; 10-14 moderate; 15-21 severe): 0 Source: Developed by Drs. Bryan Camilo, Carol Cm, Davis Ling and colleagues, with an educational ryder from [employer]. CARO-7 Assessment Billing CARO-7 Assessment Tool: CARO-7 Assessment 99263 Review of Systems Const Details: - Constitutional: Denies unintentional weight loss; reports a 4-5 pound weight gain. - Cardiovascular: Denies chest pain. - Respiratory: Denies shortness of breath. - Gastrointestinal: Reports constipation for one week, with stools that are sometimes thin. Denies abdominal pain, black stools, or bloody stools. Reports an atypical sensation of hunger. - Musculoskeletal: Reports right hip pain that is worse with sitting after work. Reports chronic low back pain in the tailbone area, generalized stiffness, and bilateral knee pain. - Neurological: Denies shooting pains in the legs consistent with sciatica. - Genitourinary: Denies urinary issues. All systems reviewed & are unremarkable except as noted in HPI and below Physical exam (Primary Care) Vital Signs: Last Vital Signs Temp 97.2 F 08/14/25 09:09 Pulse 68 08/14/25 09:09 Resp 14 08/14/25 09:09 BP 110/66 08/14/25 09:09 Pulse Ox 97 08/14/25 09:09 Oxygen Delivery Method Room Air 08/14/25 09:09 Care Plan Goal for BP management: <140/90 at Goal BMI result Body Mass Index 26.1 BMI Assessment/Plan discussion: High BMI High, discussed plan: lifestyle, weight reduction, dietary, physical activity, alcohol moderation and other Tobacco/Smoking Status: Tobacco use Status Tobacco use date assessed 02/13/25 08/14/25 09:16 Patient Tobacco Use Status Current everyday Tobacco 08/14/25 09:16 Tobacco use type Cigarette 08/14/25 09:16 PHQ-9: PHQ-9 Score PHQ-9: Total score 0 08/14/25 09:16 Depression Screening Interpretation: Negative Thrive Assessment: Date of Thrive Assessment Date Thrive assessed 02/13/25 08/14/25 09:16 Const Other: Appearance: Alert. Oriented X3. No acute distress. Head: Normal external exam. Normocephalic. Atraumatic. Eyes: Pupils are equal, round, and reactive to light. Extraocular movements intact. Conjunctiva and sclera normal. Eyelids normal. Throat: Pharynx normal. Uvula midline. Moist mucous membranes. Neck: Normal inspection. Neck supple. Full range of motion. Cardiovascular: Normal heart rate and rhythm. Respiratory: No respiratory distress. Painless inspiration. Abdomen: Soft and nontender. Bowel sounds normal in all 4 quadrants. No distention noted. No organomegaly noted. No visible injury noted. Back: No costovertebral angle tenderness. Full range of motion noted. Chronic back pain reported, but not worse than normal. Skin: Skin warm and dry. Normal skin color. Normal skin turgor. No rashes/lesions/lacerations noted. Extremities: No lower extremity edema. Extremities exhibit normal range of motion. Right hip pain noted, especially after prolonged sitting. Bilateral knee pain reported. Patient has full range of motion of bilateral knees and bilateral hips. No obvious ligamentous or tendon injury noted. All other extremities exhibit normal range of motion. No signs of infection to hips or knees or rashes noted or joint swelling or erythema. Neuro: Oriented X 3. No motor deficit. No sensory deficit. Reflexes normal. Normal steady gait. Results Reviewed Results Reviewed: - Previous lab work (6 months prior): CBC normal, electrolytes and kidney function normal, liver enzymes normal. Glucose was slightly elevated, consistent with prediabetes. Triglycerides were slightly elevated. Total cholesterol, B12, thyroid, and folate levels were normal. - Previous colonoscopy (2017): Reported as normal with a 10-year follow-up interval recommended. Coding Level of Care Code Est Pt Level 4 (60332) Complex EM visit Add On G2211 Diagnoses Abnormal stools R19.5 Bilateral knee pain M25.561; M25.562 Right hip pain M25.551 Colon polyp K63.[address] [facility] care Z00.00 Additional Codes CARO-7 Assessment Billing - CARO-7 Assessment Tool: CARO-7 Assessment 01209 ([id number]) PHQ-9 - 93182 - PHQ-9 Billing: Yes ([id number]) Assessment & Plan Assessment & Plan (1) Abnormal stools: Code(s): R19.5 - Other fecal abnormalities Category: Medical Plan: The patient's recent onset of constipation is likely related to his diet, which is high in fast food and low in vegetables. To rule out an infectious cause for his associated gastric symptoms, a stool test for H. pylori will be ordered. For immediate symptom relief and to re-establish regularity, a combination of Colace and MiraLAX is prescribed. The patient is advised to take this daily, potentially twice daily for the first week, and then adjust the frequency as needed. If symptoms do not resolve with these measures, further imaging will be considered. (2) Bilateral knee pain: Code(s): M25.561 - Pain in right knee; M25.562 - Pain in left knee Category: Medical Plan: The patient's joint pain is likely due to overuse and degenerative changes, such as osteoarthritis, given his age and physically demanding job. To further evaluate the right hip, an X-ray will be ordered. Referrals will be placed for both physical therapy and an orthopedic consultation for evaluation of the right hip and bilateral knees, with the possibility of a joint injection discussed as a treatment option with orthopedics. To manage pain and inflammation, Meloxicam once daily with food is prescribed, along with Flexeril as a muscle relaxer to be used as needed at bedtime or when not working, due to potential for drowsiness. (3) Right hip pain: Code(s): M25.551 - Pain in right hip Category: Medical Plan: see above (4) Colon polyp: Code(s): K63.5 - Polyp of colon Category: Medical Plan: The patient's last colonoscopy was in [address] Jean which revealed colonic polyp which was benign, sigmoid diverticulosis and internal hemorrhoids otherwise was normal, with a recommended 10-year follow-up interval. He is therefore not due for another screening until 2026. The patient's lab results from 6 months ago showed prediabetes and hypertriglyceridemia, which were addressed through discussion of his diet. (5) Sigmoid diverticulosis: Code(s): K57.30 - Diverticulosis of large intestine without perforation or abscess without bleeding Category: Medical Plan: The patient's last colonoscopy was in [address] Jean which revealed colonic polyp which was benign, sigmoid diverticulosis and internal hemorrhoids otherwise was normal, with a recommended 10-year follow-up interval. He is therefore not due for another screening until 2026. The patient's lab results from 6 months ago showed prediabetes and hypertriglyceridemia, which were addressed through discussion of his diet. (6) Preventative health care: Code(s): Z00.00 - Encounter for general adult medical examination without abnormal findings Category: Medical Plan: The patient's last colonoscopy was in 2016 and was normal, with a recommended 10-year follow-up interval with Dr. Jean. He is therefore not due for another screening until 2026. The patient's lab results from 6 months ago showed prediabetes and hypertriglyceridemia, which were addressed through discussion of his diet. Plan Plan Patient was informed and verbally consented to the use of an ambient scribe for clinic note documentation during this visit. 1. Constipation The patient's recent onset of constipation is likely related to his diet, which is high in fast food and low in vegetables. To rule out an infectious cause for his associated gastric symptoms, a stool test for H. pylori will be ordered. For immediate symptom relief and to re-establish regularity, a combination of Colace and MiraLAX is prescribed. The patient is advised to take this daily, potentially twice daily for the first week, and then adjust the frequency as needed. If symptoms do not resolve with these measures, further imaging will be considered. 2. Right Hip Pain And Bilateral Knee Pain The patient's joint pain is likely due to overuse and degenerative changes, such as osteoarthritis, given his age and physically demanding job. To further evaluate the right hip, an X-ray will be ordered. Referrals will be placed for both physical therapy and an orthopedic consultation for evaluation of the right hip and bilateral knees, with the possibility of a joint injection discussed as a treatment option with orthopedics. To manage pain and inflammation, Meloxicam once daily with food is prescribed, along with Flexeril as a muscle relaxer to be used as needed at bedtime or when not working, due to potential for drowsiness. 3. Preventative Care The patient's last colonoscopy was in 2016 and was normal, with a recommended 10-year follow-up interval. He is therefore not due for another screening until 2026. The patient's lab results from 6 months ago showed prediabetes and hypertriglyceridemia, which were addressed through discussion of his diet. I discussed with the patient that his constipation is likely due to his diet and prescribed Colace and MiraLAX to help regulate his bowel movements. I also explained that we will test his stool for H. pylori to rule out an infection as a cause for his stomach symptoms, and if his constipation does not improve, we may need to perform imaging studies. Regarding his right hip and bilateral knee pain, I explained that it is likely related to overuse and arthritis. We will proceed with an X-ray of his right hip and referrals to both Orthopedics and Physical Therapy. I prescribed Meloxicam for daily inflammation and Flexeril as a muscle relaxant for nighttime or non-working days, advising him not to drive or work while taking it. We will follow up in 2-3 months to assess his progress with these interventions. Orders: Orders XR hip RT w [id number] Today M25.551 - Pain in right hip PT Evaluation and Treatment Today M25.551 - Pain in right hip, M25.561 - Pain in right knee, M25.562 - Pain in left knee H pylori Ag Stool Today R19.5 - Other fecal abnormalities Referrals Orthopedics Referral M25.551 - Pain in right hip, M25.561 - Pain in right knee, M25.562 - Pain in left knee Medications: New docusate sodium (Colace) 100 mg PO DAILY 90 caps 3RF R19.5 - Other fecal abnormalities cyclobenzaprine 10 mg PO Q8H 30 tabs 3RF polyethylene glycol 3350 (Miralax) 17 grams PO DAILY 100 ea 3RF constipation R19.5 - Other fecal abnormalities meloxicam 15 mg PO DAILY 90 tabs 3RF M25.551 - Pain in right hip, M25.561 - Pain in right knee, M25.562 - Pain in left knee Patient Instructions: - Take Colace and MiraLAX every day to help with your constipation. You can start by taking them twice a day for the first week and then reduce to once a day as your bowel movements become more regular. - Please go to the lab to provide a stool sample to test for a stomach bacteria called H. pylori. - For your joint pain, take one Meloxicam pill each day with food. This is an anti-inflammatory medication. - I have also prescribed a muscle relaxer, Flexeril. Only take this at bedtime or on days you are not working, as it can make you drowsy. Do not drive or operate machinery after taking it. - We have ordered an X-ray of your right hip. - You will receive calls to schedule appointments for Physical Therapy and with an Orthopedics specialist for your hip and knee pain. Please contact our office if you do not hear from them within a month. - Please schedule a follow-up appointment in 2-3 months to check on your progress. - If your stomach problems do not get better with the new medication, please let us know at your next appointment.
== END 2025-08-14 09:37 | disposition home or self-care (01) ==
LOC: HO.HMCSH 08:56
PROVIDERS: PCP Physician Assistant Medical; Visit Provider Physician Assistant Medical
DX: R19.5 Other fecal abnormalities (principal); M25.561 Pain in right knee; M25.562 Pain in left knee; M25.551 Pain in right hip; K63.5 Polyp of colon; K57.30 Diverticulosis of large intestine without perforation or abscess without bleeding; Z00.00 Encounter for general adult medical examination without abnormal findings

== ENCOUNTER → 2025-08-14 08:55 | Outpatient (BNVA) | payer BC, SELFPAY | PROVIDERS: PCP Physician Assistant Medical; Visit Provider Physician Assistant Medical | DX: Z00.00 Encounter for general adult medical examination without abnormal findings (principal); M25.561 Pain in right knee; M25.562 Pain in left knee; M25.551 Pain in right hip; R19.5 Other fecal abnormalities; K63.5 Polyp of colon; K57.30 Diverticulosis of large intestine without perforation or abscess without bleeding | CPT/HCPCS: 96127 ==